=== PATIENT | female | born 1985 | race African-American/Black ===

== ENCOUNTER 2018-05-05 18:53 | Emergency (ER) | payer OTHER ==
[~2018-05-05] VITALS: Ht 177.8 cm; Wt 68.0 kg
[2018-05-05 19:50] VITALS: BP 134/94
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
[2018-05-05] MEDS ORDERED: Methocarbamol 500mg tab ORAL ONE (20:00)
[2018-05-05] MEDS ORDERED: ROBAXIN500 MG PO (20:01)
[2018-05-05] MEDS ORDERED: TYLENOL EXTRA500 MG ORAL (20:01)
[2018-05-05] MEDS ORDERED: LIDOCAINE700 M1 TP (20:01)
[2018-05-05 20:08] VITALS: BP 134/94
== END 2018-05-05 20:08 | disposition home or self-care (01) ==
LOC: EMR 19:40
DX: M54.2 Cervicalgia (principal); M54.9 Dorsalgia, unspecified; R07.9 Chest pain, unspecified; V43.52XA Car driver injured in collision with other type car in traffic accident, initial encounter; Y92.410 Unspecified street and highway as the place of occurrence of the external cause
CPT/HCPCS: 99284